=== PATIENT | female | born 1985 | race Caucasian/White ===

== ENCOUNTER 2019-09-28 07:29 | Outpatient (CLI) | payer OTHER, SELFPAY ==
[2019-09-28 08:39] LABS: Alanine Aminotransferase 12 U/L (4-35); Albumin Level 4.4 g/dL (3.5-5.1); Alkaline Phosphatase 71 U/L (38-126); Aspartate Amino Transferase 20 U/L (14-36); Bilirubin,Total 0.6 mg/dL (0.2-1.3); Blood Urea Nitrogen 12 mg/dL (7-17); Calcium 9.5 mg/dL (8.4-10.2); Carbon Dioxide 27 mmol/L (22-30); Chloride 98 mmol/L (98-107); Cholesterol 137 mg/dL (0-200); Estimated Glomerular Filt Rate > 60; Glucose 104 mg/dL (65-105); HDL Direct 54 mg/dL; Potassium 4.1 mmol/L (3.4-5.0); Sodium 139 mmol/L (137-145); Triglycerides 59 mg/dL (<150)
[2019-09-28 08:50] LABS: LDL Cholesterol Direct 64 mg/dL
[2019-09-28 09:43] LABS: Thyroid Stimulating Hormone Reflex < 0.015 uIU/mL (0.465-4.68)
[2019-09-28 15:59] LABS: Total Triiodothyronine (T3) 1.74 NG/ML (0.97-1.69)
== END 2019-09-28 07:30 | disposition home or self-care (01) ==
PROVIDERS: PCP Physician Assistant; Visit Provider Physician Assistant
DX: Z00.00 Encounter for general adult medical examination without abnormal findings (principal); G43.809 Other migraine, not intractable, without status migrainosus; F32.9 Major depressive disorder, single episode, unspecified; G47.00 Insomnia, unspecified
CPT/HCPCS: 36415; 80053; 80061; 84439; 84443; 84480